=== PATIENT | male | born 1950 | race Caucasian/White ===

== ENCOUNTER → 2017-08-19 | Day surgery (SDC) | payer OTHER ==
[~2017-08-19] MED LIST: ALTACE2.5 MG PO; ASA81 MG PO; DONEPEZIL HCL10 MG PO; FOLIC ACID1 MG PO; LOSARTAN POTASS25 MG PO; METAFOLBIC TAB1 EACH PO; SIMVASTATIN20 MG PO
== END | disposition home or self-care (01) ==
LOC: ADM 08-17 08:15 → CIR.AMB 08:15
DX: K40.90 Unilateral inguinal hernia, without obstruction or gangrene, not specified as recurrent (principal)

== ENCOUNTER 2019-03-28 13:31 | Outpatient (CLI) | payer OTHER | END 2019-03-28 15:24 | disposition home or self-care (01) | LOC: MRI 13:31 | DX: G30.0 Alzheimer's disease with early onset (principal); G30.1 Alzheimer's disease with late onset | CPT/HCPCS: 70551 ==